=== PATIENT | female | born 1985 | race Caucasian/White ===

== ENCOUNTER 2017-11-20 09:52 | Inpatient (IN) | payer OTHER ==
[2017-11-20] MEDS: SOD CHLORIDE 0.9% 600 ML IV (10:08)
[2017-11-20] MEDS: ONDANSETRON 4 MG INJ IV (10:09)
[2017-11-20 10:14] LABS: ADD MAN DIFF? NO
[2017-11-20 10:15] LABS: WHITE BLOOD COUNT 33.3 10^3/ul (4.8-10.8)
[2017-11-20 10:15] LABS: ABNORMAL IP MESSAGE 1; BASOPHIL # 0.2 10^3/ul (0.0-0.1); BASOPHILS % 0.6 % (0.0-2.0); EOSINOPHILS # 0.2 10^3/ul (0.0-0.5); EOSINOPHILS % 0.5 % (0.0-7.0); HEMATOCRIT 32.6 % (37.0-47.0); HEMOGLOBIN 9.2 g/dl (12.0-16.0); LYMPHOCYTES # 9.1 10^3/ul (0.8-2.9); LYMPHOCYTES % 27.5 % (15.0-51.0); MEAN CORPUSCULAR HGB CONC 28.2 g/dl (32.0-37.0); MEAN CORPUSCULAR VOLUME 95.6 fl (82.0-101.0); MEAN PLATELET VOLUME 8.7 fl (7.4-10.4); MONOCYTE # 3.1 10^3/ul (0.3-0.9); MONOCYTES % 9.3 % (0.0-11.0); NEUTROPHIL # 19.1 10^3/ul (1.6-7.5); NEUTROPHILS % 57.3 % (39.0-77.0); PLATELET COUNT 621 10^3/UL (140-415); RED BLOOD COUNT 3.41 10^6/ul (4.20-5.40); RED CELL DISTRIBUTION WIDTH 16.6 % (11.5-14.5)
[2017-11-20 10:22] LABS: POSITIVE DIFF @See below
[2017-11-20 10:38] LABS: ALANINE AMINOTRANSFERASE 16 IU/L (13-69); ALBUMIN 2.8 g/dl (3.3-4.9); ALBUMIN/GLOBULIN RATIO 0.57; ALKALINE PHOSPHATASE 233 IU/L (42-121); ASPARTATE AMINO TRANSFERASE 12 IU/L (15-46); BLOOD UREA NITROGEN 12 mg/dl (7-20); CALCIUM 8.9 mg/dl (8.4-10.2); CHLORIDE 106 mmol/L (97-110); CREATININE 1.29 mg/dl (0.44-1.00); MAGNESIUM 1.7 mg/dl (1.7-2.5); PHOSPHORUS 5.4 mg/dl (2.5-4.9); POTASSIUM 5.6 mmol/L (3.5-5.1); SODIUM 138 mmol/L (135-144); TOTAL PROTEIN 7.7 g/dl (6.1-8.1)
[2017-11-20 10:38] LABS: LACTIC ACID 1.3 mmol/L (0.5-2.0)
[2017-11-20 10:40] LABS: ANION GAP 33 (8-16)
[2017-11-20 10:42] LABS: CARBON DIOXIDE < 5 mmol/L (21-31)
[2017-11-20] MEDS ORDERED: SODIUM CHLORIDE 23.4% 77 MEQ in DEXTROSE 10% 1,000 ML IV (10:42)
[2017-11-20] MEDS ORDERED: POTASSIUM CHLORIDE 30 MEQ in SOD CHLORIDE 0.9% 1,000 ML IV (10:42)
[2017-11-20] MEDS ORDERED: SODIUM CHLORIDE 23.4% 77 MEQ, POTASSIUM CHLORIDE 30 MEQ in DEXTROSE 10% 1,000 ML IV (10:42)
[2017-11-20] MEDS ORDERED: SODIUM CHLORIDE 23.4% 77 MEQ, POTASSIUM CHLORIDE 40 MEQ in DEXTROSE 10% 1,000 ML IV (10:42)
[2017-11-20] MEDS ORDERED: POTASSIUM CHLORIDE 40 MEQ in SOD CHLORIDE 0.9% 1,000 ML IV (10:42)
[2017-11-20 10:48] LABS: GLUCOSE 730 mg/dl (70-220)
[2017-11-20] MEDS: LACTATED RINGER'S 400 ML IV (10:57)
[2017-11-20 10:59] LABS: ADD UMIC YES; UR ASCORBIC ACID NEGATIVE (NEGATIVE); UR BACTERIA FEW /HPF (NONE SEEN); UR BILIRUBIN (Dip) NEGATIVE (NEGATIVE); UR BLOOD (Dip) 3+ mg/dL (NEGATIVE); UR BUDDING YEAST FEW /HPF (NONE SEEN); UR CLARITY CLOUDY (CLEAR); UR COLOR YELLOW (YELLOW); UR GLUCOSE (Dip) 3+ mg/dL (NEGATIVE); UR KETONES (Dip) 2+ mg/dL (NEGATIVE); UR LEUKOCYTE ESTERASE (Dip) 3+ Leu/ul (NEGATIVE); UR MUCUS FEW /HPF (NONE SEEN); UR NITRITE (Dip) NEGATIVE (NEGATIVE); UR RBC 57 /HPF (0-5); UR SPECIFIC GRAVITY (Dip) 1.012 (1.003-1.030); UR SQUAMOUS EPITHELIAL CELL FEW /HPF (FEW); UR TOTAL PROTEIN (Dip) 2+ mg/dl (NEGATIVE); UR UROBILINOGEN (Dip) NEGATIVE (NEGATIVE); UR WBC 98 /HPF (0-5)
[2017-11-20 11:00] LABS: AADO2 Venous 44.2 mmHg; MODE ROOM AIR; MetHgb Venous 0.3 %; Sample Type Blood venous; Site VENOUS LINE; Venous COHb 0.3 %; Venous Fraction OxyHgb 92.4 %; Venous Total Hemglobin 9.5 g/dl
[2017-11-20] MEDS ORDERED: DEXTROSE 50% 50 ML SYRINGE IV ×2 (11:00)
[2017-11-20] MEDS: CEFTRIAXONE 1 GM/50 ML (PMX) 50 ML IVPB ×2 (11:29→18:55)
[2017-11-20] MEDS: INSULIN REGULAR, HUMAN 100 UNIT in SOD CHLORIDE 0.9% 100 ML IV ×2 (11:30→15:45)
[2017-11-20] MEDS: SOD CHLORIDE 0.9% 1,000 ML IV ×3 (11:30→17:45)
[2017-11-20 12:41] LABS: MODE ROOM AIR; MetHgb Venous 0.3 %; Sample Type Blood venous; Site VENOUS LINE; Venous COHb 0.6 %; Venous Fraction OxyHgb 87.1 %; Venous Oxygen Sat 87.9 mmHG (55.0-75.0); Venous Total Hemglobin 10.8 g/dl
[2017-11-20 12:52] LABS: BLOOD UREA NITROGEN 12 mg/dl (7-20); CALCIUM 8.3 mg/dl (8.4-10.2); CHLORIDE 110 mmol/L (97-110); CREATININE 1.19 mg/dl (0.44-1.00); MAGNESIUM 1.7 mg/dl (1.7-2.5); PHOSPHORUS 4.9 mg/dl (2.5-4.9); POTASSIUM 4.9 mmol/L (3.5-5.1); SODIUM 138 mmol/L (135-144)
[2017-11-20] MEDS ORDERED: ONDANSETRON 4 MG INJ IV (13:00)
[2017-11-20 13:08] LABS: ANION GAP 28 (8-16)
[2017-11-20 13:11] LABS: CARBON DIOXIDE < 5 mmol/L (21-31); GLUCOSE 650 mg/dl (70-220)
[2017-11-20 13:12] LABS: HEMOGLOBIN A1C 8.5 % (0-5.9)
[2017-11-20] MEDS: ACCU-CHEK XX ×11 (13:34→23:00)
[2017-11-20 14:27] LABS: BLOOD UREA NITROGEN 13 mg/dl (7-20); CALCIUM 8.1 mg/dl (8.4-10.2); CHLORIDE 111 mmol/L (97-110); CREATININE 1.07 mg/dl (0.44-1.00); MAGNESIUM 1.6 mg/dl (1.7-2.5); PHOSPHORUS 3.9 mg/dl (2.5-4.9); POTASSIUM 4.1 mmol/L (3.5-5.1); SODIUM 137 mmol/L (135-144)
[2017-11-20 14:42] LABS: AADO2 Venous 87.2 mmHg; ANION GAP 25 (8-16); MODE ROOM AIR; MetHgb Venous 0.3 %; Sample Type Blood venous; Site VENOUS LINE; Venous COHb 0.8 %; Venous Fraction OxyHgb 75.7 %; Venous Oxygen Sat 76.5 mmHG (55.0-75.0); Venous Total Hemglobin 9.2 g/dl
[2017-11-20 14:43] LABS: CARBON DIOXIDE < 5 mmol/L (21-31)
[2017-11-20 14:44] LABS: GLUCOSE 551 mg/dl (70-220)
[2017-11-20] MEDS: DEXTROSE 5%-0.45% NACL 1,000 ML IV ×3 (17:17→20:47)
[2017-11-20 19:37] LABS: ANION GAP 14 (8-16); BLOOD UREA NITROGEN 13 mg/dl (7-20); CARBON DIOXIDE 13 mmol/L (21-31); CHLORIDE 115 mmol/L (97-110); GLUCOSE 186 mg/dl (70-220); MAGNESIUM 1.3 mg/dl (1.7-2.5); PHOSPHORUS 2.3 mg/dl (2.5-4.9); POTASSIUM 3.3 mmol/L (3.5-5.1); SODIUM 139 mmol/L (135-144)
[2017-11-20] MEDS: FLUCONAZOLE 200 MG (PMX) 100 ML IVPB (20:09)
[2017-11-20] MEDS: DOCUSATE SODIUM 100 MG CAP PO (20:10)
[2017-11-20] MEDS: FAMOTIDINE 20 MG INJ IV (20:47)
[2017-11-20 21:09] LABS: BARBITURATES Negative (NEGATIVE); BENZODIAZEPINES Negative (NEGATIVE); CANNABINOIDS Negative (NEGATIVE); COCAINE Negative (NEGATIVE); OPIATES Negative (NEGATIVE)
[2017-11-20 21:16] LABS: AMPHETAMINE/METHAMPHETAMINE Positive (NEGATIVE)
[2017-11-20 23:50] LABS: ANION GAP 9 (8-16); BLOOD UREA NITROGEN 11 mg/dl (7-20); CALCIUM 7.6 mg/dl (8.4-10.2); CARBON DIOXIDE 18 mmol/L (21-31); CHLORIDE 116 mmol/L (97-110); CREATININE 0.64 mg/dl (0.44-1.00); GLUCOSE 86 mg/dl (70-220); MAGNESIUM 1.2 mg/dl (1.7-2.5); PHOSPHORUS 1.6 mg/dl (2.5-4.9); SODIUM 140 mmol/L (135-144)
[2017-11-21] MEDS: ACCU-CHEK XX ×9 (00:34→08:00)
[2017-11-21] MEDS: HYDROCODONE/APAP (5/325) TAB PO (01:39)
[2017-11-21] MEDS: SOD CHLORIDE 0.9% 1,000 ML IV ×3 (02:13→16:59)
[2017-11-21 04:21] LABS: ANION GAP 9 (8-16); BLOOD UREA NITROGEN 12 mg/dl (7-20); CALCIUM 7.5 mg/dl (8.4-10.2); CARBON DIOXIDE 17 mmol/L (21-31); CHLORIDE 115 mmol/L (97-110); CREATININE 0.64 mg/dl (0.44-1.00); GLUCOSE 100 mg/dl (70-220); MAGNESIUM 1.2 mg/dl (1.7-2.5); PHOSPHORUS 1.6 mg/dl (2.5-4.9); SODIUM 138 mmol/L (135-144)
[2017-11-21] MEDS: INSULIN GLARGINE [LANTus] (100 UNITS/ML) SYG SC (04:44)
[2017-11-21] MEDS: DEXTROSE 5%-0.45% NACL 1,000 ML IV (04:45)
[2017-11-21 04:48] LABS: POTASSIUM 2.6 mmol/L (3.5-5.1)
[2017-11-21] MEDS: POTASSIUM CHLORIDE 50 ML IVPB ×2 (04:53→05:56)
[2017-11-21] MEDS: MAGNESIUM SULFATE 4 GM/100 ML 100 ML IVPB (07:00)
[2017-11-21 07:09] LABS: ANION GAP 8 (8-16); BLOOD UREA NITROGEN 12 mg/dl (7-20); CALCIUM 7.4 mg/dl (8.4-10.2); CARBON DIOXIDE 20 mmol/L (21-31); CHLORIDE 115 mmol/L (97-110); CREATININE 0.66 mg/dl (0.44-1.00); GLUCOSE 92 mg/dl (70-220); MAGNESIUM 1.2 mg/dl (1.7-2.5); PHOSPHORUS 1.5 mg/dl (2.5-4.9); SODIUM 140 mmol/L (135-144)
[2017-11-21 07:19] LABS: FREE THYROXINE INDEX (Calc) 1.49 ug/ml (0.65-3.89); T4 (THYROXINE) 3.3 ug/dl (5.5-11.0)
[2017-11-21 07:36] LABS: POTASSIUM 2.6 mmol/L (3.5-5.1)
[2017-11-21] MEDS: DOCUSATE SODIUM 100 MG CAP PO ×2 (09:00→21:00)
[2017-11-21] MEDS: FAMOTIDINE 20 MG INJ IV ×2 (09:43→21:08)
[2017-11-21] MEDS: POTASSIUM PHOSPHATE 30 MM in SOD CHLORIDE 0.9% 250 ML IVPB (10:29)
[2017-11-21 10:35] LABS: ADD MAN DIFF? NO
[2017-11-21 10:40] LABS: BASOPHILS % 0.2 % (0.0-2.0); EOSINOPHILS # 0.4 10^3/ul (0.0-0.5); HEMATOCRIT 24.3 % (37.0-47.0); HEMOGLOBIN 7.5 g/dl (12.0-16.0); LYMPHOCYTES % 24.5 % (15.0-51.0); MEAN CORPUSCULAR HEMOGLOBIN 27.4 pg (29.0-33.0); MEAN CORPUSCULAR HGB CONC 30.9 g/dl (32.0-37.0); MEAN CORPUSCULAR VOLUME 88.7 fl (82.0-101.0); MEAN PLATELET VOLUME 8.7 fl (7.4-10.4); MONOCYTE # 1.3 10^3/ul (0.3-0.9); MONOCYTES % 10.4 % (0.0-11.0); NEUTROPHIL # 7.5 10^3/ul (1.6-7.5); PLATELET COUNT 406 10^3/UL (140-415); RED BLOOD COUNT 2.74 10^6/ul (4.20-5.40); RED CELL DISTRIBUTION WIDTH 16.2 % (11.5-14.5)
[2017-11-21 10:40] LABS: WHITE BLOOD COUNT 12.2 10^3/ul (4.8-10.8)
[2017-11-21] MEDS: INSULIN ASPART [NOVOLOG] 3 ML PEN SC ×3 (12:45→21:11)
[2017-11-21] MEDS: CEFTRIAXONE 1 GM/50 ML (PMX) 50 ML IVPB (18:43)
[2017-11-21] MEDS: FLUCONAZOLE 200 MG (PMX) 100 ML IVPB (20:12)
[2017-11-21] MEDS: ACETAMINOPHEN 325 MG TAB PO (21:45)
[2017-11-22] MEDS: SOD CHLORIDE 0.9% 1,000 ML IV ×3 (00:20→10:19)
[2017-11-22] MEDS: DIPHENHYDRAMINE 25 MG CAP PO (01:48)
[2017-11-22] MEDS: ACCU-CHEK XX (01:53)
[2017-11-22] MEDS: LEVOTHYROXINE 75 MCG TAB PO (05:15)
[2017-11-22 05:43] LABS: HEMATOCRIT 23.8 % (37.0-47.0); HEMOGLOBIN 7.6 g/dl (12.0-16.0); MEAN CORPUSCULAR HEMOGLOBIN 27.2 pg (29.0-33.0); MEAN CORPUSCULAR HGB CONC 31.9 g/dl (32.0-37.0); MEAN CORPUSCULAR VOLUME 85.3 fl (82.0-101.0); MEAN PLATELET VOLUME 8.7 fl (7.4-10.4); PLATELET COUNT 348 10^3/UL (140-415); RED BLOOD COUNT 2.79 10^6/ul (4.20-5.40); RED CELL DISTRIBUTION WIDTH 16.3 % (11.5-14.5)
[2017-11-22 05:43] LABS: WHITE BLOOD COUNT 9.6 10^3/ul (4.8-10.8)
[2017-11-22 05:57] LABS: ANION GAP 7 (8-16); BLOOD UREA NITROGEN 9 mg/dl (7-20); CALCIUM 7.2 mg/dl (8.4-10.2); CARBON DIOXIDE 20 mmol/L (21-31); CHLORIDE 113 mmol/L (97-110); CREATININE 0.49 mg/dl (0.44-1.00); GLUCOSE 282 mg/dl (70-220); MAGNESIUM 1.9 mg/dl (1.7-2.5); POTASSIUM 3.4 mmol/L (3.5-5.1); SODIUM 137 mmol/L (135-144)
[2017-11-22 06:18] LABS: ADD MAN DIFF? YES; POSITIVE DIFF @See below
[2017-11-22 07:24] LABS: ANISOCYTOSIS 1+ (0-0); BAND NEUTROPHILS #M 2.8 10^3/ul (0.0-0.6); BAND NEUTROPHILS % (M) 30 % (0-4); EOSINOPHILS % (M) 3 % (0-7); LYMPHOCYTES #M 1.3 10^3/ul (0.8-2.9); LYMPHOCYTES % (M) 14 % (15-51); MONOCYTE #M 0.3 10^3/ul (0.3-0.9); MONOCYTES % (M) 4 % (0-11); PLATELET ESTIMATE NORMAL; POLYCHROMASIA 1+ (0-0); SEGMENTED NEUTROPHILS (M) % 49 % (39-77); SMUDGE%M 42 % (0-0)
[2017-11-22] MEDS: DOCUSATE SODIUM 100 MG CAP PO (09:00)
[2017-11-22] MEDS: INSULIN ASPART [NOVOLOG] 3 ML PEN SC ×5 (09:03→18:10)
[2017-11-22] MEDS: FAMOTIDINE 20 MG INJ IV (09:04)
[2017-11-22] MEDS ORDERED: SOD CHLORIDE 0.9% 1,000 ML IV (11:30)
[2017-11-22] MEDS: POTASSIUM CHLORIDE (SR) 20 MEQ TAB PO ×2 (11:58→15:57)
[2017-11-22] MEDS: INSULIN GLARGINE [LANTus] (100 UNITS/ML) SYG SC (13:25)
[2017-11-22] MEDS: CEFTRIAXONE 1 GM/50 ML (PMX) 50 ML IVPB (18:10)
[2017-11-22] MEDS ORDERED: FAMOTIDINE 20 MG TAB PO (21:00)
[2017-11-23] MEDS ORDERED: INSULIN GLARGINE [LANTus] (100 UNITS/ML) SYG SC (08:00)
[2017-11-23] MEDS ORDERED: FLUCONAZOLE 200 MG TAB PO (09:00)
== END 2017-11-22 19:30 | disposition home or self-care (01) | DRG 637 ==
LOC: E/R 09:52 → MS1 11-21 17:55 → ICU 11:18
PROVIDERS: Family Medicine
DX: E10.10 Type 1 diabetes mellitus with ketoacidosis without coma (principal); G92 Toxic encephalopathy; R65.10 Systemic inflammatory response syndrome (SIRS) of non-infectious origin without acute organ dysfunction; N39.0 Urinary tract infection, site not specified; D63.8 Anemia in other chronic diseases classified elsewhere; F15.229 Other stimulant dependence with intoxication, unspecified; E03.9 Hypothyroidism, unspecified; Z79.4 Long term (current) use of insulin
CPT/HCPCS: 36415; 71045; 80048; 80053; 80307; 81001; 81025; 82803; 82962; 83036; 83605; 83735; 84100; 84436; 84443; 84479; 85025; 87086; 96361; 96374; 99291-25